=== PATIENT | male | born 1980 | race Caucasian/White ===

== ENCOUNTER 2021-04-29 10:18 | Emergency (ER) | payer BC ==
[~2021-04-29] VITALS: Ht 188 cm; Wt 181.0 kg
--- NOTE | 2021-04-29 11:04 | ED Lower Extremity ---
General Chief Complaint: Lower Extremity Stated Complaint: R THIGH SORE,FEET SWELLING Nursing Triage Note: Pt ambulatory to ED with c/o R thigh pain that has been intermittent for the last month. Pt reports the inner area of his R thigh is sore to touch and his feet swelled after a trip to [place] this weekend. Pt reports the area will sometimes get red and that he "got off work early today because of the weather so he thought he'd get it checked out." No redness, warmth or swelling noted at this time. Pt denies pain at this time. Source: patient (DIFFICULT HISTORIAN) History of Present Illness Date Seen by Provider: Apr 29, 2021 Time Seen by Provider: 10:25 Initial Comments PT ARRIVES VIA POV C/O INTERMITTENT PAIN TO MEDIAL RIGHT THIGH FOR A FEW MONTHS NO PAIN RIGHT NOW NO PARESTHESIAS OR MOTOR DEFICITS SYMPTOMS NO DIFFERENT TODAY IN ANY WAY HAS NOT TAKEN ANYTHING FOR PAIN AT ANY TIME HAS NOT SOUGHT CARE UNTIL TODAY STATES HE "GOT WORRIED IT MIGHT BE A BLOOD CLOT AND THAT IT MIGHT KILL ME AND WANTED IT CHECKED OUT" PT DENIES ANY INJURY OR UNUSUAL ACTIVITY. 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 STATES HIS FEET WERE SWOLLEN LAST NIGHT, BUT NOT NOW. DENIES ANY MEDICAL PROBLEMS Allergies and Home Medications Patient Home Medication List Home Medication List Reviewed: Yes Cyclobenzaprine HCl (Cyclobenzaprine HCl) 10 Mg Tablet, 10 MG PO Q8H PRN for SPASMS Prescribed by: COREY MAYA on 04/29/211200 Naproxen (Naproxen) 500 Mg Tablet.dr, 500 MG PO BID Prescribed by: COREY MAYA on 04/29/21 120 Review of Systems Constitutional: no symptoms reported Respiratory: no symptoms reported; No short of breath Cardiovascular: no symptoms reported; No chest pain Gastrointestinal: no symptoms reported Genitourinary: no symptoms reported Musculoskeletal: see HPI Skin: no symptoms reported; No rash Psychiatric/Neurological: No Symptoms Reported Past Mbgrows-Vplvcl-Vzrcts Hx Patient Social History Tobacco Use?: Yes Tobacco type used: Cigarettes Smoking Status: Current Everyday Smoker Use of E-Cig and/or Vaping dev: No Substance use?: No Pt feels they are or have been: No Immunizations Up To Date Influenza Vaccine Up-to-Date: Yes; Up-to-Date First/Initial COVID19 Vaccinat: Mar 2021 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 oz. kg; 51.00 BMI Method: General Appearance: WD/WN, no apparent distress, obese, other (WALKS IN WITHOUT DIFFICULTY. DOES NOT APPEAR TO BE IN ANY DISCOMFORT OR DISTRESS. VERY TALKATIVE. ) Cardiovascular: normal peripheral pulses, regular rate, rhythm, no murmur Respiratory: normal breath sounds Hips: bilateral hip non-tender, bilateral hip normal inspection, bilateral hip normal range of motion, bilateral hip no evidence of injury Legs: bilateral leg normal inspection, bilateral leg normal range of motion, bilateral leg no evidence of injury, bilateral leg other (TENDERNESS TO MEDIAL ASPECT OF BOTH THIGHS-EQUALLY. .NO SWELLING, NEGATIVE DESMOND'S. 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 NO SKIN DISCOLORATION. NO WOUNDS/LESIONS/SORES, ETC. ) Progress/Results/Core Measures Results/Orders Lab Results Laboratory Tests Test 04/29/21 10:58 Range/Units White Blood Count 7.6 4.3-11.0 10^3/uL Red Blood Count 5.09 4.30-5.52 10^6/uL Hemoglobin 14.4 13.3-17.7 g/dL Hematocrit 44 40-54 % Mean Corpuscular Volume 87 80-99 fL Mean Corpuscular Hemoglobin 28 25-34 pg Mean Corpuscular Hemoglobin Concent 33 32-36 g/dL Red Cell Distribution Width 13.6 10.0-14.5 % Platelet Count 229 130-400 10^3/uL Mean Platelet Volume 11.2 9.0-12.2 fL Immature Granulocyte % (Auto) 0 % Neutrophils (%) (Auto) 71 42-75 % Lymphocytes (%) (Auto) 21 12-44 % Monocytes (%) (Auto) 5 0-12 % Eosinophils (%) (Auto) 1 0-10 % Basophils (%) (Auto) 1 0-10 % Neutrophils # (Auto) 5.4 1.8-7.8 10^3/uL Lymphocytes # (Auto) 1.6 1.0-4.0 10^3/uL Monocytes # (Auto) 0.4 0.0-1.0 10^3/uL Eosinophils # (Auto) 0.1 0.0-0.3 10^3/uL Basophils # (Auto) 0.1 0.0-0.1 10^3/uL Immature Granulocyte # (Auto) 0.0 0.0-0.1 10^3/uL Erythrocyte Sedimentation Rate 9 0-15 MM/HR D-Dimer 0.61 H 0.00-0.49 UG/ML Sodium Level 138 135-145 MMOL/L Potassium Level 3.9 3.6-5.0 MMOL/L Chloride Level 103 98-107 MMOL/L Carbon Dioxide Level 24 21-32 MMOL/L Anion Gap 11 5-14 MMOL/L Blood Urea Nitrogen 14 7-18 MG/DL Creatinine 0.98 0.60-1.30 MG/DL Estimat Glomerular Filtration Rate 85 BUN/Creatinine Ratio 14 Glucose Level 160 H 70-105 MG/DL Calcium Level 9.5 8.5-10.1 MG/DL Corrected Calcium 9.7 8.5-10.1 MG/DL Magnesium Level 1.9 1.6-2.4 MG/DL Total Bilirubin 0.2 0.1-1.0 MG/DL Aspartate Amino Transf (AST/SGOT) 20 5-34 U/L Alanine Aminotransferase (ALT/SGPT) 39 0-55 U/L Alkaline Phosphatase 80 40-136 U/L C-Reactive Protein High Sensitivity 0.62 H 0.00-0.50 MG/DL B-Type Natriuretic Peptide < 10.0 <100.0 PG/ML Total Protein 6.9 6.4-8.2 GM/DL Albumin 3.8 3.2-4.5 GM/DL TSH [place] Testing 1.66 0.35-4.94 UIU/ML My Orders Orders - COREY MAYA DO Ed Iv/Invasive Line Start (04/29/21 10:29) Monitor-Rhythm Ecg Trace Only (04/29/21 10:29) BNP (04/29/21 10:29) Cbc With Automated Diff (04/29/21 10:29) Comprehensive Metabolic Panel (04/29/21 10:29) Hs C Reactive Protein (04/29/21 10:29) Erythrocyte Sedimentation Rate (04/29/21 10:29) Magnesium (04/29/21 10:29) Thyroid Analyzer (04/29/21 10:29) Fibrin Degradation Products (04/29/21 10:41) Us Venous Lower Ext Rt (04/29/21 10:41) Vital Signs/I&O 04/29/21 04/29/21 10:37 12:24 Temp 36.3 Pulse 103 96 Resp 18 16 B/P (MAP) 136/78 (97) 140/80 Pulse Ox 96 96 O2 Delivery Room Air Room Air Blood Pressure Mean: 97 Diagnostic Imaging Comments RIGHT LEG ULTRASOUND/VENOUS DOPPLER--NO DVT/NORMAL--PER TECH REPORT AT 1153, AND LATER BY RADIOLOGIST REPORT There is no evidence of right lower extremity DVT. The right lower extremity venous system shows normal compressibility with normal response to augmentation and Valsalva. No fluid collection or mass is detected. IMPRESSION: No evidence of right lower extremity DVT. Reviewed: Reviewed by Me Departure Impression Primary Impression: Right thigh pain Disposition: 01 HOME, SELF-CARE Condition: Stable Departure-Patient Inst. Decision time for Depature: 11:55 Referrals: NO,LOCAL PHYSICIAN (PCP/Family) Primary Care Physician Patient Instructions: Leg Muscle Strain ED Add. Discharge Instructions: ALTERNATE ICE AND HEAT TO AREA AT 20 MINUTE INTERVALS FOLLOW UP WITH DR OF CHOICE IN 1 WEEK IF NO BETTER All discharge instructions reviewed with patient and/or family. Voiced understanding. Scripts Cyclobenzaprine HCl (Cyclobenzaprine HCl) 10 Mg Tablet 10 MG PO Q8H PRN for SPASMS, #15 TAB 0 Refills Prov: COREY MAYA DO 04/29/21 Naproxen (Naproxen) 500 Mg Tablet. 500 MG PO BID, #20 TAB Prov: COREY MAYA DO 04/29/21 COREY MAYA DO Apr 29, 2021 11:04
[2021-04-29 11:07] LABS: BASOPHILS # (AUTO) 0.1 10^3/uL (0.0-0.1); BASOPHILS % (AUTO) 1 % (0-10); EOSINOPHILS # (AUTO) 0.1 10^3/uL (0.0-0.3); EOSINOPHILS % (AUTO) 1 % (0-10); HEMATOCRIT 44 % (40-54); HEMOGLOBIN 14.4 g/dL (13.3-17.7); LYMPHOCYTES # (AUTO) 1.6 10^3/uL (1.0-4.0); LYMPHOCYTES % (AUTO) 21 % (12-44); MEAN CORPUSCULAR HEMOGLOBIN 28 pg (25-34); MEAN CORPUSCULAR HGB CONC 33 g/dL (32-36); MEAN CORPUSCULAR VOLUME 87 fL (80-99); MEAN PLATELET VOLUME 11.2 fL (9.0-12.2); MONOCYTES # (AUTO) 0.4 10^3/uL (0.0-1.0); MONOCYTES % (AUTO) 5 % (0-12); NEUTROPHILS # (AUTO) 5.4 10^3/uL (1.8-7.8); NEUTROPHILS % (AUTO) 71 % (42-75); PLATELET COUNT 229 10^3/uL (130-400); WHITE BLOOD COUNT 7.6 10^3/uL (4.3-11.0)
[2021-04-29 11:33] LABS: ALBUMIN 3.8 GM/DL (3.2-4.5); POTASSIUM 3.9 MMOL/L (3.6-5.0)
[2021-04-29 11:35] LABS: CALCIUM 9.5 MG/DL (8.5-10.1)
[2021-04-29 11:36] LABS: ERYTHROCYTE SEDIMENTATION RATE 9 MM/HR (0-15); TOTAL PROTEIN 6.9 GM/DL (6.4-8.2)
[2021-04-29 11:37] LABS: BILIRUBIN,TOTAL 0.2 MG/DL (0.1-1.0)
[2021-04-29 11:39] LABS: CREATININE SERUM 0.98 MG/DL (0.60-1.30)
[2021-04-29 11:42] LABS: MAGNESIUM 1.9 MG/DL (1.6-2.4)
[2021-04-29] MEDS ORDERED: CYCL10TA9 PO (12:01)
[2021-04-29] MEDS ORDERED: NAPR500T8 PO (12:01)
[2021-04-29 12:03] LABS: TSH (THYROID ANALYZER) 1.66 UIU/ML (0.35-4.94)
[2021-04-29 12:24] VITALS: BP 140/80
--- NOTE | 2021-04-29 12:26 | Diagnostic Imaging Report ---
PROCEDURE: US right lower extremity venous. TECHNIQUE: Multiple real-time grayscale images were obtained over the right lower extremity in various projections. Additional spectral analysis and color Doppler duplex images were also obtained. INDICATION: Right lower extremity pain. There is no evidence of right lower extremity DVT. The right lower extremity venous system shows normal compressibility with normal response to augmentation and Valsalva. No fluid collection or mass is detected. IMPRESSION: No evidence of right lower extremity DVT. Dictated by: Dictated on workstation # [id number]
== END 2021-04-29 12:18 | disposition home or self-care (01) ==
LOC: ER 10:21
DX: M79.651 Pain in right thigh (principal); E66.9 Obesity, unspecified; F17.210 Nicotine dependence, cigarettes, uncomplicated; Z68.43 Body mass index [BMI] 50.0-59.9, adult
CPT/HCPCS: 36415; 80053; 83735; 83880; 84443; 85025; 85379; 85652; 86141